=== PATIENT | female | born 1950 | race African-American/Black ===

== ENCOUNTER 2018-08-13 14:21 | Emergency (ER) | payer OTHER ==
[~2018-08-13] VITALS: Ht 157.5 cm; Wt 72.6 kg
[2018-08-13 14:33] VITALS: BP 149/80
[2018-08-13] MEDS ORDERED: methylPREDNISolone SOD SUCC 125 MG/2 ML VL IM ONE (15:15)
== END 2018-08-13 15:56 | disposition home or self-care (01) ==
LOC: ER 14:23
DX: M06.842 Other specified rheumatoid arthritis, left hand (principal); M06.841 Other specified rheumatoid arthritis, right hand; Z88.8 Allergy status to other drugs, medicaments and biological substances
CPT/HCPCS: 73130; 96372; 99283; J2930